=== PATIENT | female | born 1965 | race Caucasian/White ===

== ENCOUNTER 2021-03-30 06:54 | Outpatient (CLI) | payer OTHER, SELFPAY ==
--- NOTE | ~2021-03-30 | MM_ITS ---
EXAMINATION: MM screening [facility] BI [facility] HISTORY: Screening mammogram TECHNIQUE: Craniocaudal and mediolateral oblique 3-D tomosynthesis images were obtained and synthetic 2-D images were generated. CAD analysis was submitted and interpreted. COMPARISON: 08/04/2019, 07/18/2018, 04/05/2017 BREAST PARENCHYMAL COMPOSITION: The breasts are heterogeneously dense, which may obscure small masses . FINDINGS: There is no evidence of suspicious mass, calcification, or architectural distortion to sugg est malignancy in either breast. There has been no suspicious interval change. IMPRESSION: 1. No mammographic evidence of malignancy. 2. Recommend routine screening mammography in one year. BI-RADS Category 1: Negative Reviewed, dictated and finalized at location A.
== END 2021-03-30 06:55 ==
LOC: MICIMG 06:56
PROVIDERS: PCP Internal Medicine; Visit Provider Obstetrics & Gynecology
DX: Z12.31 Encounter for screening mammogram for malignant neoplasm of breast (principal)
CPT/HCPCS: 77063; 77067

== ENCOUNTER → 2022-05-29 07:18 | Outpatient (CLI) | payer BC, SELFPAY ==
--- NOTE | ~2022-05-29 | MM_ITS ---
EXAMINATION: MM screening [facility] HISTORY: Screening mammogram TECHNIQUE: Craniocaudal and mediolateral oblique 3-D tomosynthesis images were obtained and synthetic 2-D images were generated. CAD analysis was submitted and interpreted. COMPARISON: 03/30/2021, 08/04/2019, 07/18/2018 bilateral screening mammogram examinations BREAST PARENCHYMAL COMPOSITION: The breasts are heterogeneously dense, which may obscure small masses . FINDINGS: There is no evidence of suspicious mass, calcification, or architectural distortion to sugg est malignancy in either breast. There has been no suspicious interval change. IMPRESSION: 1. No mammographic evidence of malignancy. 2. Recommend routine screening mammography in one year. BI-RADS Category 1: Negative Reviewed, dictated and finalized at location A.
== END ==
PROVIDERS: PCP Internal Medicine; Visit Provider Obstetrics & Gynecology Gynecology
DX: Z12.31 Encounter for screening mammogram for malignant neoplasm of breast (principal)
CPT/HCPCS: 77063; 77067

== ENCOUNTER 2024-03-27 14:43 | Outpatient (CLI) | payer BC, SELFPAY ==
--- NOTE | ~2024-03-27 | MM_ITS ---
EXAMINATION: MM screening [facility] HISTORY: Screening TECHNIQUE: Craniocaudal and mediolateral oblique 3-D tomosynthesis images were obtained and synthetic 2-D images were generated. CAD analysis was submitted and interpreted. COMPARISON: Comparison to multiple prior studies sequentially, with oldest reviewed study dated 03/2015. BREAST PARENCHYMAL COMPOSITION: Not dense: There are scattered areas of fibroglandular density. FINDINGS: There is no evidence of suspicious mass, calcification, or architectural distortion to sugg est malignancy in either breast. There has been no suspicious interval change. IMPRESSION: 1. No mammographic evidence of malignancy. 2. Recommend routine screening mammography in one year. BI-RADS Category 1: Negative Reviewed, dictated and finalized at location B.
== END 2024-03-27 14:44 | disposition home or self-care (01) ==
LOC: CHSIMG 14:46
PROVIDERS: Visit Provider Advanced Practice Midwife
DX: Z12.31 Encounter for screening mammogram for malignant neoplasm of breast (principal)
CPT/HCPCS: 77063; 77067

== ENCOUNTER 2025-05-24 08:03 | Outpatient (CLI) | payer BC, SELFPAY ==
--- NOTE | ~2025-05-24 | MM_ITS ---
EXAMINATION: MM screening [facility] HISTORY: Screening TECHNIQUE: Craniocaudal and mediolateral oblique 3-D tomosynthesis images were obtained and synthetic 2-D images were generated. CAD analysis was submitted and interpreted. COMPARISON: Comparison to multiple prior studies sequentially, with oldest reviewed study dated , 04/05/2017 BREAST PARENCHYMAL COMPOSITION: The breasts are heterogeneously dense, which may obscure small masses. FINDINGS: There is no evidence of suspicious mass, calcification, or architectural distortion to suggest malignancy in either breast. IMPRESSION: 1. No mammographic evidence of malignancy. 2. Recommend routine screening mammography in one year. BI-RADS Category 1: Negative Reviewed, dictated and finalized at location B.
--- OUTSIDE RECORDS SUMMARY | 2025-05-24 08:20 | XMS_ITS | Clinical Summary ---
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 255 g 7 Active Social History Tobacco Use Types Packs/Day Years Used Date Smoking Tobacco: Never Assessed Comments Unknown Sex and Gender Information Value Date Recorded Sex Assigned at Not on file Legal Sex Female 9:15 AM CDT Gender Identity Not on file Sexual Orientation Not on file Plan of Treatment Health Maintenance Due Date Last Done Comments Hepatitis C Virus (HCV) Screening 1965 TdaP Immunization 1967 Hepatitis B Immunization (1 of 3 - 19+ 3-dose series) 1986 Pap Smear 02/23/1988 Cervical Cancer Screening (CCS) 1997 HPV/Cotest 1997 Cologuard 02/23/2012 Colonoscopy 02/23/2012 Colorectal Cancer Screening 02/23/2012 Immunochemical Fecal Occult Blood 02/23/2012 Pneumococcal Immunization (5 0+ years) (1 of 1 - PCV) 2017 Zoster Immunization (1 of 2) 2017 SARS-COV-2 Immunization ( - 2023-25 season) 2024 Influenza Immunization (#1) 2025 Respiratory Syncytial Virus (RSV) Immunization (Adult) (1 - 1-dose 75+ series) 2042 Human Papillomavirus (HPV) Immunization Aged Out No longer eligible b ased on patient's age to complete this topic Meningococcal Immunization (ACWY) Aged Out No longer eligible based on patient's age to complete this topic Rotavirus Immunization Aged Out No lo nger eligible based on patient's age to complete this topic Insurance [employer] Care Teams 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 [address] PCP - General Internal Medicine 03/12/17 Du Childs MD [address] [place] [address] Obstetrics & Gynecology 03/12/17
== END 2025-05-24 08:04 | disposition home or self-care (01) ==
LOC: CHSIMG 08:04
PROVIDERS: PCP Obstetrics & Gynecology Gynecology; Visit Provider Obstetrics & Gynecology Gynecology
DX: Z12.31 Encounter for screening mammogram for malignant neoplasm of breast (principal)
CPT/HCPCS: 77063; 77067